=== PATIENT | male | born 1925 | race Caucasian/White ===

== ENCOUNTER 2016-07-22 13:32 | Emergency (ER) | payer MEDICARE ==
--- NOTE | 2016-07-22 15:30 | RAD ---
EXAMINATION:SHOULDER-LEFT 2 OR MORE VIEWS Clinical indication:Left shoulder pain fall 4 days ago. Initial encounter. Comparisons:None Findings: No displaced fracture is identified. There is mild glenohumeral joint space narrowing. The acromioclavicular joint is unremarkable. The adjacent soft tissues are unremarkable. Adjacent compression plates are noted which may reflect chest wall surgery. 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 No gross acute fracture or dislocation is identified.
--- NOTE | 2016-07-22 15:30 | RAD ---
EXAMINATION :TWO VIEW HUMERUS LEFT HISTORY: Fall 4 days ago. Left humerus and shoulder pain. COMPARISONS: None FINDINGS: 2 views of the Left humerus reveals:No fracture or focal destruction. The glenohumeral joint space is grossly maintained. The elbow is grossly unremarkable. No radiopaque foreign body is identified. IMPRESSION: Negative two-view left humerus.
== END 2016-07-22 15:50 | disposition home or self-care (01) ==
LOC: ED 13:32
DX: S49.92XA Unspecified injury of left shoulder and upper arm, initial encounter (principal); I25.10 Atherosclerotic heart disease of native coronary artery without angina pectoris; I50.9 Heart failure, unspecified; E78.5 Hyperlipidemia, unspecified; I10 Essential (primary) hypertension; Z87.891 Personal history of nicotine dependence; W01.0XXA Fall on same level from slipping, tripping and stumbling without subsequent striking against object, initial encounter